=== PATIENT | female | born 1950 | race Two or more races ===

== ENCOUNTER 2019-01-02 18:42 | Inpatient (IN) | payer MEDICARE, MEDICAID ==
[~2019-01-02] VITALS: Ht 167.6 cm; Wt 42.7 kg
--- NOTE | 2019-01-02 19:10 | NUR ---
PT BIBPA FOR FAILURE TO [facility] PT AAXO1. RESPIRATIONS EVEN AND UNLABORED. PT PUT ON THE MONITOR AND PULSE OX. PENDING EVAL FROM ER .
[2019-01-02] MEDS ORDERED: IV NS 0.9% 500 ML BAG IV ONE (20:00)
--- NOTE | 2019-01-02 20:05 | NUR ---
XRAY AT BEDSIDE.
[2019-01-02 20:12] LABS: BASOPHILS % (AUTO) 0.6 % (0.0-2.0); EOSINOPHILS % (AUTO) 1.3 % (0.0-6.0); HEMATOCRIT 35 % (33-45); HEMOGLOBIN 11.5 g/dL (11.5-14.8); LYMPHOCYTES # (AUTO) 1.4 /CMM (0.8-4.8); LYMPHOCYTES % (AUTO) 21.6 % (20.0-44.0); MEAN CORPUSCULAR HGB CONC 33 g/dl (31.0-36.0); MEAN CORPUSCULAR VOLUME 89 fL (82-100); MONOCYTES # (AUTO) 0.5 /CMM (0.1-1.30); MONOCYTES % (AUTO) 7.7 % (2.0-12.0); NEUTROPHILS # (AUTO) 4.4 /CMM (1.8-8.9); NEUTROPHILS % (AUTO) 68.8 % (43.0-81.0); PLATELET COUNT (AUTO) 248 /CMM (150-450); RED BLOOD CELL COUNT(AUTO) 3.88 MIL/uL (4.0-5.2); WHITE BLOOD COUNT (AUTO) 6.4 K/uL (4.3-11.0)
[2019-01-02 20:24] LABS: CALCIUM, SERUM 9.7 mg/dL (8.5-10.1); CARBON DIOXIDE 30 mmol/L (21-32); CHLORIDE 103 mmol/L (98-107); CREATININE 1.1 mg/dL (0.6-1.3); GLUCOSE 144 mg/dL (74-106); POTASSIUM 3.8 mmol/L (3.5-5.1); SODIUM SERUM 142 mmol/L (136-145); UREA NITROGEN, BLOOD 28 mg/dL (7-18)
[2019-01-02 20:29] LABS: ALANINE AMINOTRANSFERASE 36 U/L (12-78); ALBUMIN 3.7 g/dL (3.4-5.0); ALKALINE PHOSPHATASE 79 U/L (46-116); ASPARTATE AMINOTRANSFERASE 24 U/L (15-37); BILIRUBIN,DIRECT 0.1 mg/dL (0.0-0.2); BILIRUBIN,TOTAL 0.2 mg/dL (0.2-1.0); LIPASE 174 U/L (73-393); TOTAL PROTEIN, SERUM 7.6 g/dL (6.4-8.2)
[2019-01-02 20:31] LABS: APPEARANCE,URINE Clear (CLEAR); BILIRUBIN,URINE Negative (NEGATIVE); BLOOD, URINE Trace-intact Ery/uL (NEGATIVE); COLOR,URINE Yellow (YELLOW); KETONES,URINE Trace (NEGATIVE); LEUKOCYTE ESTERASE ,URINE Negative (NEGATIVE); NITRITE, URINE Positive (NEGATIVE); PROTEIN,URINE Negative (NEGATIVE); UGLUCOSE Negative (NEGATIVE); UROBILINOGEN,URINE 0.2 EU/dL (0.2)
[2019-01-02 20:39] LABS: BACTERIA,URINE Moderate /HPF (None Seen); RBC,URINE 0-2 /HPF (0-2); SQUAMOUS EPITHELIAL CELL,UR Few /HPF (None Seen)
[2019-01-02] MEDS ORDERED: CEFTRIAXONE 1GM BAG (ER ONLY) 50 ML IV ONE (20:53)
[2019-01-02] MEDS ORDERED: CEFTRIAXONE 1GM BAG (ER ONLY) 1 GM/50 ML PIGGYBACK IV ONE (21:00)
[2019-01-02] MEDS ORDERED: IV NS 0.9% 1,000 ML BAG IV ONE (21:00)
--- NOTE | 2019-01-02 21:03 | NUR ---
ADMIT TELE 312-1 DX: FAILURE TO THRIVE, SEPSIS REYNOLD COSTA
--- NOTE | 2019-01-02 21:11 | NUR ---
REPORT GIVEN TO JOE WOO FOR THIERRY.
[2019-01-02] MEDS ORDERED: ATOR40TA PO (21:29)
[2019-01-02] MEDS ORDERED: CLON0.5T12 PO (21:29)
[2019-01-02] MEDS ORDERED: BISA-79 PR (21:29)
[2019-01-02] MEDS ORDERED: OLAN5TAB3 PO (21:29)
[2019-01-02] MEDS ORDERED: OMEG1CAP PO (21:29)
[2019-01-02] MEDS ORDERED: TYL2T PO (21:29)
[2019-01-02] MEDS ORDERED: HYDR12.5 PO (21:29)
[2019-01-02] MEDS ORDERED: DOCU-141 PO (21:29)
[2019-01-02] MEDS ORDERED: HYDR-4384 PO (21:29)
[2019-01-02] MEDS ORDERED: ASPI-1169 PO (21:29)
[2019-01-02] MEDS ORDERED: NA P133E RC (21:29)
[2019-01-02] MEDS ORDERED: MAGN400O21 PO (21:29)
[2019-01-02] MEDS ORDERED: METF-440 PO (21:29)
[2019-01-02] MEDS ORDERED: CHLO473M3 PO (21:29)
[2019-01-02 21:30] VITALS: BP 169/80
--- NOTE | 2019-01-02 21:30 | NUR ---
RN ADMITTING NOTES RECEIVED REPORT FROM HOUSE PLAYER NAOMY. Pt ARRIVED TO THE FLOOR VIA GURNEY. ON TELE MONITOR. Pt WAS AWAKE IN BED. RESPIRATIONS EVEN AND UNLABORED. NO S/S OF ACUTE DISTRESS OR SOB NOTED. Pt IS A/OX1, ALERT TO NAME ONLY, VERY CONFUSED. UNABLE TO RECALL CURRENT DATE & YEAR AND WHERE SHE IS OR WHERE SHE LIVES. Pt IS ABLE TO ANSWER FEW SIMPLE YES OR NO QUESTIONS SUCH BEING IN PAIN OR NOT. Pt IS A POOR HISTORIAN. IV ACCESS ON LAC #18G. SAFETY MEASURES IN PLACE. BED LOW, LOCKED, HOB ELEVATED, SIDE RAILS UP, CALL LIGHT AND BEDSIDE TABLE WITHIN REACH. BED ALARM ON. WILL CONTINUE TO MONITOR Pt's CONDITION AND SAFETY THROUGHOUT THE NIGHT.
[2019-01-02] MEDS ORDERED: HYDROCODONE/APAP 5/325MG 1 EACH TABLET PO PRN (22:00)
[2019-01-02] MEDS ORDERED: BISACODYL (5 MG) 5 MG TABLET.DR PO PRN (22:00)
[2019-01-02] MEDS ORDERED: ZOLPIDEM TARTRATE 5 MG TABLET PO PRN (22:00)
[2019-01-02] MEDS ORDERED: Z GUARD REMEDY 2 OZ OINT TP PRN (22:00)
[2019-01-02] MEDS ORDERED: ONDANSETRON HCL/PF 4 MG/2 ML VIAL IVP PRN (22:00)
[2019-01-02] MEDS ORDERED: DEXTROSE 50%-WATER 50 ML DISP.SYRIN IV PRN (22:00)
[2019-01-02] MEDS ORDERED: NA PHOS,M-B/NA PHOS,DI-BA 1 EA ENEMA RC PRN (22:00)
[2019-01-02] MEDS ORDERED: MAGNESIUM HYDROXIDE 30 ML UDC PO PRN (22:00)
[2019-01-02] MEDS ORDERED: MAG HYDROX/AL HYDROX/SIMETH 30 ML UDC PO PRN (22:00)
[2019-01-02] MEDS ORDERED: ACETAMINOPHEN 325 MG TABLET PO PRN (22:00)
--- NOTE | 2019-01-02 22:00 | NUR ---
RN NOTES SKIN ASSESSMENT DONE NO WOUNDS. SKIN INTACT.
[2019-01-02] MEDS ORDERED: ENOXAPARIN SODIUM 40 MG/0.4 ML DISP.SYRIN SQ SCH (22:30)
[2019-01-02] MEDS: ATORVASTATIN 40 MG TABLET PO SCH (23:39)
[2019-01-02] MEDS: ENOXAPARIN SODIUM 40 MG/0.4 ML DISP.SYRIN SQ SCH (23:41)
[2019-01-02] MEDS: BLOOD SUGAR DIAGNOSTIC 1 EACH STRIP IN SCH (23:46)
--- NOTE | 2019-01-02 23:58 | NUR ---
RN NOTES BG 109. NO INSULIN COVERAGE NEEDED AT THIS TIME.
[2019-01-03] VITALS: BP 147/83
--- NOTE | 2019-01-03 01:00 | NUR ---
RN NOTES Pt IS ATTEMPTING TO GET OUT OF BED. Pt PULLED OUT IV. INSERTED NEW IV ON LFA #22G. MOVED Pt TO ROOM 309-2 SINCE SITTER WAS ALREADY THERE FOR ROOM 309-1.
[2019-01-03 04:00] VITALS: BP 134/73
[2019-01-03] MEDS: IV NS 0.9% 1,000 ML IV PRN ×2 (04:42→19:06)
--- NOTE | 2019-01-03 04:59 | NUR ---
BRIA QUILES (NIECE/GUARANTOR): [phone]
[2019-01-03 06:21] LABS: CALCIUM, SERUM 8.7 mg/dL (8.5-10.1); CREATININE 0.9 mg/dL (0.6-1.3); MAGNESIUM 1.5 mg/dL (1.8-2.4); PHOSPHORUS 3.3 mg/dL (2.5-4.9); POTASSIUM 3.3 mmol/L (3.5-5.1)
--- NOTE | 2019-01-03 06:30 | NUR ---
RN NOTES AC ACCHCHECK BG 77. NO INSULIN COVERAGE NEEDED AT THIS TIME. WILL PROVIDE Pt WITH OAllan.
[2019-01-03] MEDS: BLOOD SUGAR DIAGNOSTIC 1 EACH STRIP IN SCH ×4 (06:31→21:50)
[2019-01-03 06:33] LABS: THYROID STIMULATING HORMONE 1.029 uIU/mL (0.358-3.74)
[2019-01-03] MEDS: PANTOPRAZOLE 40 MG TABLET.DR PO SCH (06:33)
[2019-01-03 06:41] LABS: BASOPHILS # (AUTO) 0.1 /CMM (0.0-0.2); EOSINOPHILS % (AUTO) 1.4 % (0.0-6.0); HEMATOCRIT 31 % (33-45); HEMOGLOBIN 10.7 g/dL (11.5-14.8); LYMPHOCYTES # (AUTO) 2.1 /CMM (0.8-4.8); MEAN CORPUSCULAR HGB CONC 34 g/dl (31.0-36.0); MEAN CORPUSCULAR VOLUME 88 fL (82-100); MONOCYTES # (AUTO) 0.5 /CMM (0.1-1.30); MONOCYTES % (AUTO) 9.2 % (2.0-12.0); NEUTROPHILS % (AUTO) 52.4 % (43.0-81.0); PLATELET COUNT (AUTO) 218 /CMM (150-450); RED BLOOD CELL COUNT(AUTO) 3.58 MIL/uL (4.0-5.2); WHITE BLOOD COUNT (AUTO) 5.7 K/uL (4.3-11.0)
--- NOTE | 2019-01-03 06:45 | NUR ---
RN CLOSING NOTES NO SIGNIFICANT CHANGES IN Pt's CONDITION. Pt REMAINS ASLEEP IN BED. RESPIRATIONS EVEN AND UNLABORED. NO S/S OF ACUTE DISTRESS OR SOB NOTED DURING THE NIGHT. ALL NEEDS MET AND ATTENDED TO. SAFETY MEASURES IN PLACE. SITTER AT BEDSIDE. BED LOW, LOCKED, HOB ELEVATED, SIDE RAILS UP, CALL LIGHT AND BED ALARM ON. TELE READING STABLE SB 55 WHEN ASLEEP, SR 62 WHEN AWAKE. WILL ENDORSE TO DAYSHIFT RN FOR Pt'S THIERRY.
--- NOTE | 2019-01-03 07:55 | NUR ---
MS RN RECEIVED ON BED,AWAKE,ORIENTED X1,NOT IN ANY FORM OF DISTRESS,RESPIRATIONS EVEN AND UNLABORED,NO SOB NOTED, LUNGS ARE CLEAR,ABDOMEN SOFT,POSITIVE BOWEL SOUNDS,DENIES PAIN AT THIS TIME,WILL MONITOR PATIENT.
[2019-01-03] MEDS ORDERED: Medication Not On Formulary EA (Omega-3 Fatty Acids/Fish Oil (Fish Oil 1,000 Mg Capsule) PO SCH (09:00)
[2019-01-03] MEDS: DOCUSATE SODIUM 100 MG CAPSULE PO SCH (09:50)
[2019-01-03] MEDS: ASPIRIN 81 MG TAB.CHEW PO SCH (09:50)
[2019-01-03] MEDS: CHLORHEXIDINE GLUCONATE 15 ML UDC MM SCH ×2 (09:50→17:20)
[2019-01-03] MEDS: OLANZAPINE 5 MG TABLET PO SCH ×2 (09:50→21:50)
[2019-01-03] MEDS ORDERED: Magnesium 1GM/D5W 100ML PREMIX 100 ML IV SCH (10:00)
--- NOTE | 2019-01-03 10:00 | NUR ---
MS LI BREAKFAST SERVED,DUE MEDS GIVEN,TOLERATED WELL.
[2019-01-03] MEDS ORDERED: POTASSIUM CHLORIDE 20 MEQ TAB.PRT.SR PO ONE (10:30)
--- NOTE | 2019-01-03 12:00 | NUR ---
MS RN BS - 133 - REFUSED INSULIN,NOT EATING MUCH.
--- NOTE | 2019-01-03 15:03 | NUR ---
MS RN ON BED, W/ SITTER,NO DISTRESS NOTED.
[2019-01-03] MEDS: ENSURE ENLIVE CHOC 237 ML CAN PO SCH (17:00)
--- NOTE | 2019-01-03 17:05 | NUR ---
MS LI BS - 112 - NO COVERAGE GIVEN.
--- NOTE | 2019-01-03 18:13 | NUR ---
MS RN ON BED, NO DISTRESS NOTED.
--- NOTE | 2019-01-03 19:30 | NUR ---
MSRN PLEASANTLY CONFUSED, TALKS TO SELF, CAN BE COOPERATIVE. NEEDS ASSISTANCE REPOSITIONING. NO SOB, V/S STABLE. CONTINUED
--- NOTE | 2019-01-03 19:40 | NUR ---
POLO RECEIVED SREAMING , UNCOOPERATIVE OF THIS TIME. WANTED NOBODY IN THE ROOM. CONFUSED. UNABLE TO ASSESS. PROVIDED PRIVACY WITH COSE SUPERVISION OF THIS TIME. TO CONTINUE. Addendum: 01/04/19 at 0327 by NINA CHAND RN DISREGARD ABOVE DOCUMENTATION. NOT INTENDED FOR THIS PATIENT.
[2019-01-03 20:00] VITALS: BP 161/85
[2019-01-03] MEDS: CEFTRIAXONE 1 G in IV D5W 50 ML IV SCH (21:49)
[2019-01-03] MEDS: ATORVASTATIN 40 MG TABLET PO SCH (21:50)
[2019-01-03] MEDS: ENOXAPARIN SODIUM 40 MG/0.4 ML DISP.SYRIN SQ SCH (21:52)
--- NOTE | 2019-01-03 22:00 | NUR ---
MSRN TOOK MEDS CRUSHED WITH APPLE SAUCE. RE STARTED 22 GUAGE ON RIGHT WRIST WITH GOOD BLOOD RETURN. PRESENT IVF CONTINUED. SITTER AT BEDSIDE.
--- NOTE | 2019-01-04 03:30 | NUR ---
MSRN REMAINS UNCHANGED. CLOSELY WATCHED
--- NOTE | 2019-01-04 07:00 | NUR ---
MSRN BS 69, OJ GIVEN. ENDORSED TO INCOMING RN FOR CONTINUITY OF CARE
--- NOTE | 2019-01-04 07:10 | NUR ---
MSRN. PT RECEIVED ALERT TO SELF, TOLERATING ROOM AIR WITHOUT DISTRESS AND DENIES PAIN, PT WITHOUT OBVIOUS DISTRESS OR DISCOMFORT. PT WITH IVC AT R FA INTACT AND OPERATIONAL WITH IVF PER RX, TAPPED AND WITH SLEEVE FOR SAFETY. PT WITH 1:1 FOR SAFETY. BED IN LOWEST LOCKED POSITION WITH HANDRAILSX3 AND CALL BLAND WITHIN REACH. PT REPOSITIONED AND FEELS FLOATED. PT BRIEFED ON TODAY'S POC AND IS WITHOUT CONCERN OR COMPLAINT AT THIS TIME, WILL REORIENTATE NEEDED.
[2019-01-04 08:00] VITALS: BP 151/92
[2019-01-04] MEDS: BLOOD SUGAR DIAGNOSTIC 1 EACH STRIP IN SCH ×4 (08:51→22:28)
[2019-01-04] MEDS: DOCUSATE SODIUM 100 MG CAPSULE PO SCH (08:53)
[2019-01-04] MEDS: OLANZAPINE 5 MG TABLET PO SCH ×2 (08:53→21:55)
[2019-01-04] MEDS: ASPIRIN 81 MG TAB.CHEW PO SCH (08:53)
[2019-01-04] MEDS: PANTOPRAZOLE 40 MG TABLET.DR PO SCH (08:53)
[2019-01-04] MEDS: CHLORHEXIDINE GLUCONATE 15 ML UDC MM SCH ×2 (09:00→17:32)
[2019-01-04] MEDS: ENSURE ENLIVE CHOC 237 ML CAN PO SCH ×2 (09:03→17:31)
[2019-01-04] MEDS: IV NS 0.9% 1,000 ML IV PRN (15:29)
[2019-01-04 16:00] VITALS: BP 150/76
--- NOTE | 2019-01-04 18:29 | NUR ---
MSRN. PT REMAINS ALERT TO SELF, TOLERATING ROOM AIR WITHOUT DISTRESS AND DENIES PAIN, PT WITHOUT OBVIOUS DISTRESS OR DISCOMFORT. PT WITH IVC AT R FA WITH IVF PER RX, SLEEVE AND TAPPED SECURELY. PT WITH 1:1 FOR SAFETY. BED IN LOWEST LOCKED POSITION WITH HANDRAILSX3 CAN CALL BLAND WITHIN REACH. PT REPOSITIONED AND FEELS FLOATED Q2HR OR SOONER. PT IS WITHOUT CONCERN OR COMPLAINT AT THIS TIME. WILL ENDORSE TO NIGHT NURSE AT BEDSIDE FOR THIERRY.
--- NOTE | 2019-01-04 19:20 | NUR ---
MS/RN NOTES RECEIVED PT. LYING IN BED. PT. IS ALERT TO SELF. BREATHING EVEN AND UNLABORED ON ROOM AIR. NO SOB, RESPIRATORY DISTRESS OR COMPLAINTS OF PAIN NOTED AT THIS TIME. PT. WITH RIGHT FOREARM 22 GAUGE PERIPHERAL IV PRESENT, PATENT AND INTACT ADMINISTERING TO PT. NS @ 75 ML/HR. NO S/S OF HYPO/HYPERGLYCEMIA NOTED AT THIS TIME. PT. WITH 1:1 SITTER PRESENT AT BEDSIDE. BED LOCKED AND IN LOWEST POSITION, SIDE RAILS UP X3, CALL LIGHT WITHIN REACH, WILL CONTINUE TO MONITOR.
[2019-01-04 20:00] VITALS: BP 122/65
[2019-01-04] MEDS: ATORVASTATIN 40 MG TABLET PO SCH (21:55)
[2019-01-04] MEDS: CEFTRIAXONE 1 G in IV D5W 50 ML IV SCH (21:55)
[2019-01-04] MEDS: ENOXAPARIN SODIUM 40 MG/0.4 ML DISP.SYRIN SQ SCH (21:57)
[2019-01-04] MEDS: INSULIN REGULAR, HUMAN 100 UNIT/ML 3 ML VIAL SQ PRN (22:29)
[2019-01-05] MEDS: BLOOD SUGAR DIAGNOSTIC 1 EACH STRIP IN SCH ×4 (06:48→22:24)
--- NOTE | 2019-01-05 07:07 | NUR ---
MS/RN NOTES PT. IS LYING IN BED RESTING. BREATHING EVEN AND UNLABORED ON ROOM AIR. NO SOB, RESPIRATORY DISTRESS OR COMPLAINTS OF PAIN NOTED AT THIS TIME. PT. WITH RIGHT FOREARM 22 GAUGE PERIPHERAL IV PRESENT, PATENT AND INTACT ADMINISTERING TO PT. NS @ 75 ML/HR. NO S/S OF HYPO/HYPERGLYCEMIA NOTED AT THIS TIME AND THROUGHOUT SHIFT, PT. WITH 1:1 SITTER PRESENT AT BEDSIDE. ALL PT. NEEDS MET. BED LOCKED AND IN LOWEST POSITION, SIDE RAILS UP X3, CALL LIGHT WITHIN REACH, WILL ENDORSE TO DAYSHIFT NURSE FOR CONTINUITY OF CARE.
[2019-01-05] MEDS: IV NS 0.9% 1,000 ML IV PRN (07:29)
[2019-01-05 08:00] VITALS: BP 130/71
[2019-01-05] MEDS: PANTOPRAZOLE 40 MG TABLET.DR PO SCH (08:26)
[2019-01-05] MEDS: ASPIRIN 81 MG TAB.CHEW PO SCH (08:26)
[2019-01-05] MEDS: CHLORHEXIDINE GLUCONATE 15 ML UDC MM SCH ×2 (08:26→17:00)
[2019-01-05] MEDS: ENSURE ENLIVE CHOC 237 ML CAN PO SCH ×2 (08:28→17:00)
[2019-01-05] MEDS: OLANZAPINE 5 MG TABLET PO SCH ×2 (08:41→22:21)
--- NOTE | 2019-01-05 08:53 | NUR ---
MS RN OPENING NOTES PT RESTING IN BED. A/O X1-2. NOT IN ANY KIND OF DISTRESS. RESPIRATIONS EVEN AND UNLABORED. DENIES ANY PAIN OR DISCOMFORT AT THIS TIME. IVF NS AT 75ML/HR TO RFA G22, INTACT WITHOUT INFILTRATION NOTED. KEPT COMFORTABLE, CLEAN AND DRY. HOB ELEVATED, IN LOW AND LOCKED POSITION, SIDE RAILS UP X3 AND ON 1:1 SITTER. WILL CONTINUE TO MONITOR.
[2019-01-05] MEDS: DOCUSATE SODIUM 100 MG CAPSULE PO SCH (09:00)
[2019-01-05] MEDS: INSULIN REGULAR, HUMAN 100 UNIT/ML 3 ML VIAL SQ PRN ×2 (12:06→17:43)
--- NOTE | 2019-01-05 15:46 | NUR ---
MSRN. PT PREPARED FOR D.C PER MD ORDER. PT A&0X1, TOLERATING ROOM AIR WITHOUT DISTRESS. PT DENIES PAIN AND WITHOUT OBVIOUS S/S OF DISTRESS OR DISCOMFORT. PT IVC REMOVED FROM R WRIST AND NAD AT SITE. PT BELONGINGS LIST SIGNED AND CHARTED. PT UNABLE TO BE COMPREHEND SOH D/C PACKET. PT MEDICATIONS, HEALTH NEEDS AND STATUS ENDORSED TO [place] [employer] REPRODUCER NORMA. AMBULANCE PRESENT FOR D/C. PT BP HIGH, WILL HOLD D/C AND REASSESS.
[2019-01-05 16:00] VITALS: BP 148/80
[2019-01-05] MEDS ORDERED: hydrALAZINE HCL 25 MG TABLET PO ONE ×2 (16:28→17:40)
--- NOTE | 2019-01-05 16:30 | NUR ---
PT TRANSPORT HERE, PT NOW WITH B0 176/90, HR 55. REQUESTING HYDRALAZINE 25MG PO ONCE. ORDERS PLACED.
[2019-01-05 17:33] VITALS: BP 169/84
--- NOTE | 2019-01-05 17:45 | NUR ---
MSRN. PT AGITATED AND REFUSING BP MEDICATION. BP REMAINS UNCHANGED.
--- NOTE | 2019-01-05 18:19 | NUR ---
MSRN. PT REMAINS ALERT TO SELF, TOLERATING ROOM AIR WITHOUT DISTRESS AND DENIES PAIN, PT WITHOUT OBVIOUS DISTRESS OR DISCOMFORT. PT REMAINS AGITATED AND REFUSING BP MEDICATION- CHILD PROTECTIVE INVESTIGATOR UNABLE TO TRANSPORT. PT IVC REMOVED FOR D/C. PT WITH 1:1 FOR SAFETY. BED IN LOWEST LOCKED POSITION WITH HANDRAILSX3 CAN CALL BLAND WITHIN REACH. PT REPOSITIONED AND FEELS FLOATED Q2HR OR SOONER. WILL ENDORSE TO NIGHT RN TO MANAGE BP AND D/C.
--- NOTE | 2019-01-05 18:19 | NUR ---
POLO. PT REMAINS REFUSING BP MEDICATION.
--- NOTE | 2019-01-05 19:38 | NUR ---
MS/RN OPENING NOTES RECEIVED PATIENT IN BED, AWAKE, ALERT, RESPIRATIONS EVEN AND UNLABORED, NO GRIMACE OR GUARDING, PREFER TO BE LEFT ALONE BEHAVIOR BUT REQUIRE A SITTER PATIETN HAS BEHAVIOR AND CONFUSED. SBP ELEVATED RECEHECK AGAIN AND ELEVATED, TO ADMINISTER PRN ONE TIME ORDER OF HYDRALAZINE TO PATIENT, PATIENT FOR DC TO SNF TODAY TO KEEP B/P WNL. WILL CONTINUE TO MONITOR,
--- NOTE | 2019-01-05 19:50 | NUR ---
ms/rn notes B/P ELEVATED, TO CALL MD FOR A ONE TIME ORDER FOR ELEVATED B/P OF 182/70. WILL MONITOR. AND F/U WITH .
--- NOTE | 2019-01-05 20:18 | NUR ---
MS/RN NOTES PATIENT WITH ELEVATED SBP, 180/70 MD WAS CONTACTED AND RECEIVED A ONE TIME ORDER OF CLONIDINE O.1 MG PO. ORDER RECEIVED AND CARRIED OUT.
[2019-01-05] MEDS ORDERED: CLONIDINE HCL 0.1 MG TABLET PO ONE (20:30)
[2019-01-05 20:36] VITALS: BP 173/98
[2019-01-05 20:38] VITALS: BP 173/98
[2019-01-05] MEDS: CEFTRIAXONE 1 G in IV D5W 50 ML IV SCH (21:00)
[2019-01-05 21:34] VITALS: BP 154/81
--- NOTE | 2019-01-05 21:43 | NUR ---
BP RE CHECKED AT 154/81 WITH HR AT 50, TRANSPORTATION [facility] WITH TRIP NO CONTACTED AND ETS AT 2345. [facility] FOR [facility]OM NO.
[2019-01-05] MEDS: ATORVASTATIN 40 MG TABLET PO SCH (22:21)
[2019-01-05] MEDS: ENOXAPARIN SODIUM 40 MG/0.4 ML DISP.SYRIN SQ SCH (22:30)
--- NOTE | 2019-01-05 22:37 | NUR ---
MS/RN NOTES REPORT FOR TRANSFER BACK TO SNF REPORT GIVEN TO ALLYSON MADE RN AWARE THAT PATIENT IS COMING BACJ WITH STABLE B/P, [facility] CONFIRMED TIME AND AWAITING FOR SYSTEM SUPPORT ANALYST/ PER JEN VALADEZ, WILL ACCEPT PATIENT ORDERED.
[2019-01-06 00:30] VITALS: BP 153/73
--- NOTE | 2019-01-06 00:30 | NUR ---
MS/RN NOTES PATIENT WAS DISCHARGE TO SNF AT [facility], BLOOD PRESSURE AT 153/73, AND LOW PULSE RATE OF 55. WITH FLUCTUATIONS OF 45-55, PATIENT RESTING AND SLEPT. RESPONSIVE TO CARE. [facility] ARRIVE PATIENT WAS D/C VIA [facility] ON A GURNEY ON ROOM AIR. CALM AND COOPERTIVE. KEPT SKIN INTACT AND DRY, WITH DC ORDER TO SNF FOR TODAY. RN ENTRY CLERK AT SNF WAS INFORMED.
[2019-01-06 01:30] VITALS: BP 186/81
--- NOTE | 2019-01-06 01:30 | NUR ---
MS/RN NOTES RECEIVED PATIENT FOR REINSTATEMENT DUE TO UNCONTROLLED BLOOD PRESSURE, AND SENT BACK FROM [facility] WITH PROTOCOL NOT TO ACCEPT PATIETN IF SBP GREATER THAN 140 AND PULSE BELOW 60. PATIETN AWAKE, CALM AND COOPERTAIVE OXYGEN AT 100% IN ROOM AIR, DENIES PAIN, SBP ELEVATED,
[2019-01-06 02:59] VITALS: BP 199/91
[2019-01-06] MEDS ORDERED: hydrALAZINE HCL 25 MG TABLET PO ONE (03:00)
[2019-01-06 03:39] VITALS: BP 165/73
[2019-01-06 05:00] VITALS: BP 148/76
[2019-01-06] MEDS ORDERED: hydrALAZINE HCL 25 MG TABLET PO SCH (05:00)
--- NOTE | 2019-01-06 06:02 | NUR ---
MS/RN NOTES PATIENT REFUSE TO HAVE IV INSERTION AT THIS TIME WILL TRY AGAIN.
--- NOTE | 2019-01-06 06:42 | NUR ---
309-2 MS/RN NOTE PATIENT IN BED RESTING , SLEPT FEW HOURS, BLOOD PRESSURE MONITORING, RESPIRATIONS EVEN AND UNLABORED, SKIN WARM TO TOUCH. EPT COMFORTABLE AND WARM, WILL MONITOR AND ENDORSE AM RN FOR THIERRY.
--- NOTE | 2019-01-06 07:30 | NUR ---
ms rn received on bed, awake,alert,oriented x1,not in any form of distress, respirations even and unlabored,no sob noted, lungs are clear,abdomen soft,positive bowel sounds,denies pain at this time, will monitor patient.
[2019-01-06] MEDS: ENSURE ENLIVE CHOC 237 ML CAN PO SCH (08:00)
--- NOTE | 2019-01-06 08:45 | NUR ---
ms jayden breakfast served,due meds given,tolerated well. [facility].
[2019-01-06] MEDS ORDERED: AMLODIPINE BESYLATE 10 MG TABLET PO SCH (09:00)
[2019-01-06] MEDS: INSULIN REGULAR, HUMAN 100 UNIT/ML 3 ML VIAL SQ PRN (09:05)
[2019-01-06] MEDS: BLOOD SUGAR DIAGNOSTIC 1 EACH STRIP IN SCH (09:05)
[2019-01-06] MEDS: DOCUSATE SODIUM 100 MG CAPSULE PO SCH (09:09)
[2019-01-06] MEDS: OLANZAPINE 5 MG TABLET PO SCH (09:09)
[2019-01-06] MEDS: CHLORHEXIDINE GLUCONATE 15 ML UDC MM SCH (09:09)
[2019-01-06] MEDS: ASPIRIN 81 MG TAB.CHEW PO SCH (09:09)
[2019-01-06 09:12] VITALS: BP 128/67
[2019-01-06] MEDS: PANTOPRAZOLE 40 MG TABLET.DR PO SCH (09:14)
--- NOTE | 2019-01-06 10:00 | NUR ---
ms rn up w/ pt, walked around w/ walker.
--- NOTE | 2019-01-06 10:30 | NUR ---
ms rn report given to belinda, patient went to [facility] via ambulance, latest b/p 147/81,pr 56,no distress noted.
== END 2019-01-06 11:00 | DRG 689 ==
LOC: ER 18:55 → TELE 20:53 → EDBD 20:53 → TELE 23:03 → MED 01-03 09:52 → UNDODISIN 01-06 00:30
PROVIDERS: ADMIT Hospitalist
DX: N39.0 Urinary tract infection, site not specified (principal); E43 Unspecified severe protein-calorie malnutrition; G93.41 Metabolic encephalopathy; Z68.1 Body mass index [BMI] 19.9 or less, adult; E87.2 Acidosis; E86.0 Dehydration; E87.6 Hypokalemia; E83.42 Hypomagnesemia; R62.7 Adult failure to thrive; F03.90 Unspecified dementia, unspecified severity, without behavioral disturbance, psychotic disturbance, mood disturbance, and anxiety; F20.9 Schizophrenia, unspecified; F41.9 Anxiety disorder, unspecified; I10 Essential (primary) hypertension; Z79.82 Long term (current) use of aspirin; R53.1 Weakness; E88.09 Other disorders of plasma-protein metabolism, not elsewhere classified; E11.9 Type 2 diabetes mellitus without complications; B96.20 Unspecified Escherichia coli [E. coli] as the cause of diseases classified elsewhere; Z79.84 Long term (current) use of oral hypoglycemic drugs
CPT/HCPCS: 36415; 71045-TC; 80048-TC; 80061-TC; 80076-TC; 81000-TC; 82962-TC; 83605-TC; 83690-TC; 83735-TC; 84100-TC; 84443-TC; 85025-TC; 87040-TC; 87081-TC; 87086-TC; 87186-TC; 97116-TC; 97530-TC; G0378; J0696; J1650; J1815; J3475; J7030; J7042; J7060